=== PATIENT | male | born 1995 | race Caucasian/White ===

== ENCOUNTER 2020-04-18 14:19 | Emergency (ER) | payer OTHER ==
[2020-04-18] MEDS ORDERED: Ketorolac Tromethamine 30 MG/ML VIAL ONE (15:14)
--- NOTE | 2020-04-18 16:46 | CT ---
Exam: Lumbar spine CT scan without IV contrast: HISTORY: Overactive bladder, injury from a fall on tailbone with pain FINDINGS: No evidence for acute fracture or dislocation of the lumbar spine. The disc spaces appear to be adequ ately preserved. No evidence for significant canal or lateral recess or foraminal stenosis. In the region of the sacrum and coccyx there is evidence for hairline transverse nondisplaced fractur e through the posterior elements at the S2-S3 level. This does not appear to involve the bodies of the sacrum. IMPRESSION: Hairline nondisplaced transverse fracture involving the posterior elements of the sacrum at the S2-S3 level. No evidence for lumbar spine fracture or dislocation.
[2020-04-18 16:54] LABS: Bacteria/HPF None Seen HPF (None Seen); Bilirubin Negative (Negative); Blood, Urine Negative (Negative); Clarity Clear (Clear); Glucose, Urine (Dipstick) Normal (Negative); Ketone, Urine Negative (Negative); Leukocyte 75 Leu/uL (Negative); Nitrite Negative (Negative); Protein, Urine (Dipstick) Negative (Neg-Trace); RBC/HPF None Seen HPF (0-3); Specific Gravity, Urine 1.005 (1.002-1.036); Squamous Epithelial None Seen HPF (0-3); Urobilinogen Normal mg/dL (Less than 2); WBC/HPF 0-3 HPF (0-3); pH, Urine 6.5 (5.0-9.0)
== END 2020-04-18 17:50 | disposition home or self-care (01) ==
LOC: ERS 14:19
DX: N39.490 Overflow incontinence (principal); S32.15XA Type 2 fracture of sacrum, initial encounter for closed fracture; S32.16XA Type 3 fracture of sacrum, initial encounter for closed fracture; F41.9 Anxiety disorder, unspecified; Z79.899 Other long term (current) drug therapy; W19.XXXA Unspecified fall, initial encounter
CPT/HCPCS: 72131; 81003; 81015; 96372; J1885